=== PATIENT | female | born 1965 | race African-American/Black ===

== ENCOUNTER 2018-04-26 22:38 | Emergency (ER) | payer OTHER | END 2018-04-27 02:41 | disposition left against medical advice (07) | LOC: ER 22:38 | DX: M25.569 Pain in unspecified knee (principal); Z53.21 Procedure and treatment not carried out due to patient leaving prior to being seen by health care provider ==

== ENCOUNTER 2018-05-07 03:00 | Emergency (ER) | payer OTHER ==
[~2018-05-07] VITALS: Ht 162.6 cm; Wt 66.0 kg
[2018-05-07] MEDS ORDERED: IBUPROFEN 800MG TABLET PO ONE (06:45)
[2018-05-07 07:15] VITALS: BP 134/90
== END 2018-05-07 07:52 | disposition home or self-care (01) ==
LOC: ER 03:00
DX: M25.561 Pain in right knee (principal); R03.0 Elevated blood-pressure reading, without diagnosis of hypertension; F17.200 Nicotine dependence, unspecified, uncomplicated; Z98.1 Arthrodesis status; Z88.6 Allergy status to analgesic agent
CPT/HCPCS: 73560; 99284

== ENCOUNTER 2022-09-12 13:44 | Emergency (ER) | payer OTHER ==
[~2022-09-12] VITALS: Ht 162.6 cm; Wt 79.0 kg
[2022-09-12] MEDS ORDERED: aspirin (14:15)
[2022-09-12] MEDS ORDERED: IBUPROFEN 400MG TABLET PO ONE (14:30)
[2022-09-12 15:00] LABS: BASOPHILS % 0.6 % (0.0-2.0); EOSINOPHILS % 0.7 % (0.0-5.0); HEMATOCRIT. 37.1 % (36.0-48.0); HEMOGLOBIN. 12.7 g/dL (12.0-16.0); MEAN CORPUSCULAR VOLUME 84.5 fL (81.0-99.0); MEAN PLATELET VOLUME 8.3 fl (7.4-10.4); MONOCYTES % 4.8 % (2.0-8.0); NEUTROPHILS % 60.9 % (40.0-76.0); PLATELET 211 x1000/uL (130-400); RED BLOOD CELL COUNT 4.39 mill/uL (4.2-5.4); RED CELL DISTRIBUTION WIDTH 14.6 % (11.6-14.6)
[2022-09-12 15:13] LABS: CHLORIDE 103 mEq/L (98-107)
[2022-09-12 18:05] VITALS: BP 147/78
== END 2022-09-12 18:33 | disposition home or self-care (01) ==
LOC: ER 13:44
DX: I10 Essential (primary) hypertension (principal); M79.18 Myalgia, other site; Z88.6 Allergy status to analgesic agent
CPT/HCPCS: 36415; 80053; 83880; 84484; 85025; 93005; 99284